=== PATIENT | male | born 1960 | race Caucasian/White ===

== ENCOUNTER 2016-11-10 09:12 | Emergency (ER) | payer OTHER ==
--- NOTE | 2016-11-10 11:12 | Emergency Department Record ---
History of Present Illness - General Chief Complaint: Cough Stated Complaint: COUGH/NATALYA Time Seen by Provider: 11/10/16 10:16 Source: Patient Mode of Arrival: Ambulatory Limitations: No limitations - History of Present Illness Initial Comments: pt has had a cough and and congestion for 3 days. rhinitis is yellow and cough is productive. MD Complaint: Cough, Nasal congestion, Rhinorrhea, Sinus pain Onset/Timin -: Days(s) Severity: Mild Consistency: Intermittent Improves With: Nothing Worsens With: Nothing Context: Sick contacts Associated Symptoms: Cough, Headache, Hoarseness, Nasal congestion, Sore throat - Related Data Home Medications Medication Instructions Recorded Confirmed Last Taken Amlodipine Besylate [Norvasc] 10 mg PO DAILY 11/19/14 11/10/16 11/10/16 Budesonide/Formoterol Fumarate 2 puff IH BIDDIUR 11/19/14 11/10/16 11/10/16 [Symbicort 80-4.5 Mcg Inhaler] Fluoxetine HCl [Prozac] 20 mg PO DAILY 11/19/14 11/10/16 11/10/16 Omeprazole [Prilosec] 20 mg PO DAILY 11/19/14 11/10/16 11/10/16 Calcium Carbonate [Coral Calcium] 780 mg PO DAILY tab 10/27/15 11/10/16 Atorvastatin Calcium 20 mg PO DAILY 11/10/16 11/10/16 11/10/16 Bumetanide [Bumex] 1 mg PO DAILY 11/10/16 11/10/16 11/10/16 Tamsulosin HCl [Flomax] 0.4 mg PO DAILY 11/10/16 11/10/16 11/10/16 Previous Rx's Medication Instructions Recorded Albuterol Sulfate [Proair Hfa] 2 puff IH .EVERY 4-6 HOURS PRN #1 11/20/14 inhaler Azithromycin [Zithromax] 250 mg PO DAILY #6 tab 11/10/16 Benzonatate [Tessalon] 1 cap PO Q8H PRN #10 cap 11/10/16 Allergies Allergy/AdvReac Type Severity Reaction Status Date / Time NSAIDS (Non-Steroidal Allergy Mild SWELLING Verified 11/10/16 09:37 Anti-Inflamma OF THE LIPS Travel Screening - Travel/Exposure Within Last 30 Days Have you traveled within the last 30 days?: No Review of Systems Reviewed: No additional complaints except as noted below Constitutional: Reports: As per HPI. Denies: Chills, Fever, Malaise, Night sweats, Weakness, Weight change Eyes: Reports: As per HPI. Denies: Eye discharge, Eye pain, Photophobia, Vision change ENT: Reports: As per HPI. Denies: Congestion, Dental pain, Ear pain, Epistaxis , Hearing loss, Throat pain Respiratory: Reports: As per HPI. Denies: Cough, Dyspnea, Hemoptysis, Stridor, Wheezes Cardiovascular: Reports: As per HPI. Denies: Arrhythmia, Chest pain, Dyspnea on exertion, Edema, Murmurs, Orthopnea, Palpitations, Paroxysmal nocturnal dyspnea, Rheumatic Fever, Syncope Endocrine: Reports: As per HPI. Denies: Fatigue, Heat or cold intolerance, Polydipsia, Polyuria Gastrointestinal: Reports: As per HPI. Denies: Abdominal pain, Constipation, Diarrhea, Hematemesis, Hematochezia, Melena, Nausea, Vomiting Genitourinary: Reports: As per HPI. Denies: Dysuria, Frequency, Hematuria, Incontinence, Retention, Testicular pain, Testicular mass, Urgency Musculoskeletal: Reports: As per HPI. Denies: Arthralgia, Back pain, Gout, Joint swelling, Myalgia, Neck pain Skin: Reports: As per HPI. Denies: Bruising, Change in color, Change in hair/ nails, Lesions, Pruritus, Rash Neurological: Reports: As per HPI. Denies: Abnormal gait, Confusion, Headache, Numbness, Paresthesias, Seizure, Tingling, Tremors, Vertigo, Weakness Psychiatric: Reports: As per HPI. Denies: Anxiety, Auditory hallucinations, Depression, Homicidal thoughts, Suicidal thoughts, Visual hallucinations Hematological/Lymphatic: Reports: As per HPI. Denies: Anemia, Blood Clots, Easy bleeding, Easy bruising, Swollen glands Past Medical History - SOCIAL HISTORY Smoking Status: Never smoker Alcohol Use: Rare Drug Use: None - RESPIRATORY Hx Respiratory Disorders: Yes Hx COPD: Yes - CARDIOVASCULAR Hx Cardio Disorders: Yes Hx Hypertension: Yes - NEURO Hx Neuro Disorders: Yes Hx Headaches: Yes - GI Hx GI Disorders: Yes Hx Reflux: Yes - Hx Genitourinary Disorders: Yes Hx Kidney Stones: Yes (Lithotripsy) - ENDOCRINE Hx Endocrine Disorders: No - MUSCULOSKELETAL Hx Musculoskeletal Disorders: No - PSYCH Hx Psych Problems: No - HEMATOLOGY/ONCOLOGY Hx Hematology/Oncology Disorders: No Family Medical History Any Significant Family History?: Yes Family Hx Comment (NOT TO BE USED IN PLACE OF ITEMS BELOW): Does not know mothers history Hx Heart Disease: Father Hx Stroke: Father Physical Exam - General General Appearance: Alert, Oriented x3, Cooperative, Mild distress - Head Head exam: Normal inspection - Eye Eye exam: Normal appearance, PERRL, EOMI Pupils: Normal accommodation - ENT ENT exam: Normal exam, Mucous membranes moist, Normal external ear exam, Normal orophraynx Ear exam: Normal external inspection. negative: External canal tenderness Nasal Exam: Normal inspection. negative: Discharge, Sinus tenderness Mouth exam: Normal external inspection, Tongue normal Teeth exam: Normal inspection. negative: Dental caries Throat exam: Normal inspection. negative: Tonsillar erythema, Tonsillar exudate - Neck Neck exam: Normal inspection, Full ROM. negative: Tenderness - Respiratory Respiratory exam: Normal lung sounds bilaterally. negative: Respiratory distress - Cardiovascular Cardiovascular Exam: Regular rate, Normal rhythm, Normal heart sounds - GI/Abdominal GI/Abdominal exam: Soft, Normal bowel sounds. negative: Tenderness - Rectal Rectal exam: Deferred - exam: Deferred - Extremities Extremities exam: Normal inspection, Full ROM, Normal capillary refill. negative: Tenderness - Back Back exam: Reports: Normal inspection, Full ROM. Denies: Muscle spasm, Rash noted, Tenderness - Neurological Neurological exam: Alert, CN II-XII intact, Normal gait, Oriented X3 - Psychiatric Psychiatric exam: Normal affect, Normal mood - Skin Skin exam: Dry, Intact, Normal color, Warm Course Vital Signs 11/10/16 09:29 Temperature 97.7 F Pulse Rate 91 H Respiratory 18 Rate Blood Pressure 134/106 Pulse Ox 96 Disposition Disposition: Discharge Clinical Impression: Bronchitis Sinusitis Qualifiers: Sinusitis location: unspecified location Chronicity: acute Recurrence: non- recurrent Qualified Code(s): J01.90 - Acute sinusitis, unspecified Disposition: Home, Self-Care Condition: (1) Good Instructions: Acute Bronchitis (ED), Sinusitis (ED) Additional Instructions: follow up with family doctor. return sooner if worse. Prescriptions: Benzonatate [Tessalon] 1 cap PO Q8H PRN #10 cap PRN Reason: Cough Azithromycin [Zithromax] 250 mg PO DAILY #6 tab Forms: Patient Portal Access
== END 2016-11-10 11:32 | disposition home or self-care (01) ==
LOC: ER 09:12
DX: J20.9 Acute bronchitis, unspecified (principal); J01.90 Acute sinusitis, unspecified
CPT/HCPCS: 71020; 99283

== ENCOUNTER 2018-06-11 17:23 | Emergency (ER) | payer SELFPAY ==
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
--- NOTE | 2018-06-13 14:01 | CT SCAN REPORT ---
DATE: 06/11/2018. EXAM: NONCONTRAST CT OF THE HEAD. HISTORY: THE PATIENT HIT HIS HEAD ONE MONTH AGO AND NOW HAS HEADACHES. TECHNIQUE: Noncontrast CT of the head. COMPARISON: None. FINDINGS: No midline shift, mass effect, or abnormal intra- or extra-axial fluid collection. No cerebral edema, focal mass, or intracranial hemorrhage is seen. Ventricle sizes appear within normal limits. No displaced calvarial fracture is detected. The visualized paranasal sinuses and mastoid air cells are clear. IMPRESSION: NO ACUTE INTRACRANIAL FINDINGS. JOB NUMBER: [id number] [facility]
--- NOTE | 2018-06-13 14:10 | CT SCAN REPORT ---
DATE: 06/11/2018. EXAM: NONCONTRAST CT OF THE CERVICAL SPINE. HISTORY: FALL WITH NECK PAIN. TECHNIQUE: Noncontrast CT of the cervical spine. COMPARISON: None. FINDINGS: No acute fracture detected. No evidence of cervical spine dislocation. Prevertebral soft tissues appear unremarkable. Multilevel cervical spine degenerative changes with disc height loss and endplate osteophytes noted most prominently at C5-6 and C6-7. No definite high- grade central canal stenosis is appreciated by CT. No definite high-grade neural foraminal stenosis. Bi-apical pleural scarring is noted. IMPRESSION: 1. NO EVIDENCE OF ACUTE CERVICAL SPINE FRACTURE OR DISLOCATION. 2. MULTILEVEL CERVICAL SPINE DEGENERATIVE CHANGES. JOB NUMBER: [id number] [facility]
== END 2018-06-11 19:54 | disposition home or self-care (01) ==
LOC: ER 17:23
DX: S09.90XA Unspecified injury of head, initial encounter (principal); R51 Headache; M54.2 Cervicalgia; R20.0 Anesthesia of skin; I10 Essential (primary) hypertension; J44.9 Chronic obstructive pulmonary disease, unspecified; Z87.891 Personal history of nicotine dependence; V69.3XXA Occupant (driver) (passenger) of heavy transport vehicle injured in unspecified nontraffic accident, initial encounter; Y93.41 Activity, dancing; Y92.79 Other farm location as the place of occurrence of the external cause
CPT/HCPCS: 70450; 72125; 99283; 99284

== ENCOUNTER 2019-09-25 13:06 | Emergency (ER) | payer BC ==
[2019-09-25] MEDS ORDERED: HYDROCODONE/APAP 5/325MG TABLET PO ONE (14:06)
[2019-09-25] MEDS ORDERED: KETOROLAC 30 MG/ML VIAL IM ONE (14:06)
--- NOTE | 2019-09-25 14:07 | Emergency Department Record ---
History of Present Illness - General Chief complaint: Extremity Problem Stated complaint: L LEG PAIN Time Seen by Provider: 09/25/19 13:57 Source: Patient, Family Mode of Arrival: Ambulatory Limitations: No limitations - History of Present Illness Initial comments: 59 yo male presents with about 5 days of left leg pain. 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 He had some lower back pain initially. The pain now goes from his toes on the left to the hip. No weakness. No fever. No direct trauma. The pain is positional. No swelling, abnormal warmth or ez. No abdominal pain. No know history of PAD or DVT. No MD Complaint: Extremity pain Onset/Timin -: Week(s) Location: Left, Thigh History of Same: No Severity scale (1-10): 7 Quality: Sharp, Stabbing Consistency: Constant Improves with: Cold therapy, Rest Worsens with: Walking, Weight bearing Associated Symptoms: Denies other symptoms - Related Data Previous Rx's Medication Instructions Recorded Albuterol Sulfate [Proair Hfa] 2 puff IH .EVERY 4-6 HOURS PRN #1 11/20/14 inhaler Hydrocodone/APAP 5/325Mg [[place] 1 each PO Q6H #12 tab 09/25/19 5Mg/325Mg] Allergies Allergy/AdvReac Type Severity Reaction Status Date / Time NSAIDS (Non-Steroidal Allergy Mild SWELLING Verified 09/25/19 13:18 Anti-Inflamma OF THE LIPS Travel/Exposure Screening - Travel/Exposure Within Last 30 Days Have you traveled within the last 30 days?: No - Travel/Exposure Within Last Year Have you traveled outside the [place] in the last year?: No - Additonal Travel/Exposure Details Have you been exposed to anyone with a communicable illness?: No - Travel Symptoms Symptom Screening: None Review of Systems Constitutional: Denies: Chills, Fever, Malaise, Weakness Eyes: Denies: Eye discharge ENT: Denies: Congestion, Throat pain Respiratory: Denies: Cough, Dyspnea Cardiovascular: Denies: Chest pain, Palpitations, Syncope Endocrine: Denies: Fatigue Gastrointestinal: Denies: Abdominal pain, Diarrhea, Nausea, Vomiting Genitourinary: Denies: Dysuria, Frequency, Hematuria Musculoskeletal: Reports: Myalgia. Denies: Arthralgia, Back pain, Joint swelling, Neck pain Skin: Denies: Bruising, Change in color, Rash Neurological: Denies: Abnormal gait, Headache, Numbness, Weakness Psychiatric: Denies: Anxiety Hematological/Lymphatic: Denies: Easy bleeding, Easy bruising Past Medical History - SOCIAL HISTORY Smoking Status: Never smoker Alcohol Use: None Drug Use: None - RESPIRATORY Hx Respiratory Disorders: Yes Hx COPD: Yes - CARDIOVASCULAR Hx Cardio Disorders: Yes Hx Hypertension: Yes - NEURO Hx Neuro Disorders: Yes Hx Headaches: Yes - GI Hx GI Disorders: Yes Hx Reflux: Yes - Hx Genitourinary Disorders: Yes Hx Kidney Stones: Yes (Lithotripsy) - ENDOCRINE Hx Endocrine Disorders: No - MUSCULOSKELETAL Hx Musculoskeletal Disorders: No - PSYCH Hx Psych Problems: No - HEMATOLOGY/ONCOLOGY Hx Hematology/Oncology Disorders: No Family Medical History Any Significant Family History?: Yes Family Hx Comment (NOT TO BE USED IN PLACE OF ITEMS BELOW): Does not know mothers history Hx Heart Disease: Father Hx Stroke: Father Physical Exam - General General Appearance: Alert, Oriented x3, Cooperative, No acute distress Limitations: No limitations - Head Head exam: Atraumatic, Normal inspection - Eye Eye exam: Normal appearance. negative: Conjunctival injection - ENT ENT exam: Normal exam Ear exam: Normal external inspection Nasal Exam: Normal inspection Mouth exam: Normal external inspection - Neck Neck exam: Normal inspection, Full ROM. negative: Tenderness - Respiratory Respiratory exam: Normal lung sounds bilaterally. negative: Rhonchi, Stridor, Wheezes - Cardiovascular Cardiovascular Exam: Regular rate, Normal rhythm, Normal heart sounds Peripheral Pulses: 2+: Dorsalis Pedis (L) (Femoral pulse +2) - GI/Abdominal GI/Abdominal exam: Soft. negative: Distended, Guarding, Hypoactive bowel sounds, Pulsatile mass, Rebound, Tenderness - Rectal Rectal exam: Deferred - exam: Deferred - Extremities Extremities exam: Normal inspection, Normal capillary refill, Other (foot flexion intact, foot extension intact, EHL intact distal warm foot, intact DP and PT). negative: Calf tenderness, Full ROM (pain down the leg with straight leg raise), Joint swelling, Pedal edema, Tenderness - Back Back exam: Reports: Paraspinal tenderness, Tenderness (lumbar on the left), Vertebral tenderness. Denies: CVA tenderness (R), CVA tenderness (L) - Neurological Neurological exam: Alert, Normal gait, Oriented X3, Reflexes normal. negative: Abnormal gait, Altered, Motor sensory deficit - Psychiatric Psychiatric exam: Normal affect, Normal mood. negative: Agitated, Anxious - Skin Skin exam: Dry, Intact, Normal color, Warm Course Vital Signs 09/25/19 13:20 Temperature 97.6 F Pulse Rate 72 Respiratory 20 Rate Blood Pressure 142/83 Pulse Ox 97 - Reevaluation(s) Reevaluation #1: The initial examination demonstrates neuro vascular intact left leg. He does have pain with SLR. No weakness. His examination is consistent with sciatica 09/25/19 15:07 The left hip XR is normal The lumbar XR demonstrates mild chronic compression of L2, unchanged, mild compression of L4, mild discu narrowing T12-L1 The results were discussed with the patient I recommend follow up with PCP The pain is consistent with sciatica with out weakness I recommend possible outpatient MRI to further assess his symptoms. 09/25/19 18:19 Disposition Disposition: Discharge Clinical Impression: Sciatica Disposition: Home, Self-Care Condition: (1) Good Instructions: Sciatica (ED), Lumbar Radiculopathy (ED) Additional Instructions: Review this ER visit and the tests performed with your family doctor Call your doctor for the next available follow up appointment Return to the ER for a recheck immediately if worse, any new concerns or questions Take the prescriptions provided as directed Prescriptions: Hydrocodone/APAP 5/325Mg [[place] 5Mg/325Mg] 1 each PO Q6H #12 tab Forms: Patient Portal Access Time of Disposition: 15:11 Quality - Quality Measures Quality Measures: N/A - Blood Pressure Screening Does Patient Have Any of the Following: No Blood Pressure Classification: Hypertensive Reading Systolic Measurement: 143 Diastolic Measurement: 94 Screening for High Blood Pressure: < Pre-Hypertensive BP, F/U Documented > [G8950] Pre-Hypertensive Follow-up Interventions: Referral to alternative/primary care provider.
--- NOTE | 2019-09-25 14:44 | RADIOLOGY REPORT ---
EXAMINATION: Left Hip Minimum Two Views EXAM DATE: 09/25/2019 2:36 PM TECHNIQUE: AP pelvis and left frog leg lateral hip views INDICATION: lumbar pain, left leg radiation COMPARISON: None ENCOUNTER: Initial FINDINGS: There is no bone or joint abnormality. IMPRESSION: Normal exam. Dictated by: García Yap MD on 09/25/2019 2:40 PM. .
--- NOTE | 2019-09-25 14:56 | RADIOLOGY REPORT ---
EXAMINATION: Lumbar Spine Two or Three Views EXAM DATE: 09/25/2019 2:38 PM TECHNIQUE: AP and lateral views INDICATION: lumbar pain, left leg radiation COMPARISON: CT abdomen/pelvis January 30, 2016 ENCOUNTER: Initial FINDINGS: No acute fracture or dislocation. A mild chronic compression deformity at L2 is unchanged. There is also mild chronic compression defor mity and spurring at L4, unchanged. Mild disc height narrowing and sclerosis are seen at T12-L1. IMPRESSION: 1. No acute fracture. 2. Multilevel chronic findings are described above. Dictated by: Emeka Ramos MD on 09/25/2019 2:42 PM. .
== END 2019-09-25 15:33 | disposition home or self-care (01) ==
LOC: ER 13:06
DX: M54.42 Lumbago with sciatica, left side (principal); M79.652 Pain in left thigh; I10 Essential (primary) hypertension; J44.9 Chronic obstructive pulmonary disease, unspecified
CPT/HCPCS: 99284 ×2; 96372; 72100; 73502; J1885